=== PATIENT | male | born 1950 | race Caucasian/White ===

== ENCOUNTER 2017-01-09 14:09 | Emergency (ER) | payer OTHER ==
[2017-01-09 14:57] VITALS: TEMP 97.2
[2017-01-09] MEDS ORDERED: ASPIRIN 81 MG CHEW PO STA (16:24)
[2017-01-09] MEDS ORDERED: ORPHENADRINE 30 MG/ML 2 ML VIAL IVP STA (16:24)
--- NOTE | 2017-01-09 16:30 | ED ---
General Adult HPI - General Chief complaint: Neck Pain/Injury Stated complaint: Neck/Shoulder pain Time Seen by Provider: 01/09/17 16:18 Source: patient, RN notes reviewed Mode of arrival: ambulatory Limitations: no limitations - History of Present Illness Initial comments: 66-year-old male presents to the emergency 5 chief complaint of neck pain. Patient states that he just has a stiffness and soreness in his neck. Patient states he's had it for about a month or so. Patient states his will give him massages the pain will go away. Patient states that'll come back. Patient states that he has not had any injury to the neck. Patient states that She Feels Better for A Few Days and Then Once He Goes to Work Which Is Very Labor Intensive His Pain Will Return. Patient States He Was Concerned Because He Just Continues to Have the Pain so He Thought That He Should Be Evaluated. Patient States He Has Not Had Any Fever or Chills with This. Patient Denies Any Chest Pain or Shortness of Breath with This.Patient denies any recent fever , chills, shortness of breath, chest pain, back pain, abdominal pain, nausea vomiting, numbness or tingling, dysuria or hematuria, constipation or diarrhea, headaches or visual changes, or any other current symptoms. - Related Data Home Medications Medication Instructions Recorded Confirmed Aspirin EC [Ecotrin Low Dose] 81 mg PO DAILY 01/09/17 01/09/17 Loratadine [Claritin] 10 mg PO DAILY 01/09/17 01/09/17 Multivitamins, Thera [Multivitamin 1 tab PO DAILY 01/09/17 01/09/17 (formulary)] Previous Rx's Medication Instructions Recorded Ibuprofen [Motrin] 600 mg PO Q6HR PRN #20 tab 01/09/17 Orphenadrine [Norflex] 100 mg PO Q12H #10 tablet.er 01/09/17 Allergies Allergy/AdvReac Type Severity Reaction Status Date / Time No Known Allergies Allergy Verified 01/09/17 15:53 Review of Systems ROS Statement: Those systems with pertinent positive or pertinent negative responses have been documented in the HPI. ROS Other: All systems not noted in ROS Statement are negative. Past Medical History Past Medical History: Hyperlipidemia, Myocardial Infarction ([place]) History of Any Multi-Drug Resistant Organisms: None Reported Past Surgical History: No Surgical Hx Reported Past Psychological History: No Psychological Hx Reported Smoking Status: Former smoker Past Alcohol Use History: Occasional Past Drug Use History: None Reported General Exam - General Exam Comments Initial Comments: General: The patient is awake and alert, in no distress, and does not appear acutely ill. Eye: Pupils are equal. Ears, nose, mouth and throat: There are moist mucous membranes. Neck: The neck is supple, there is no tenderness. Cardiovascular: There is a regular rate and rhythm. No murmur, rub or gallop is appreciated. Respiratory: Lungs are clear to auscultation, respirations are non-labored, breath sounds are equal. No wheezes, stridor, rales, or rhonchi. Gastrointestinal: Soft, non-distended, non-tender abdomen without masses or organomegaly noted. There is no rebound or guarding present. No CVA tenderness. Bowel sounds are unremarkable. Back: There is no tenderness to palpation in the midline. There is no obvious deformity. No rashes noted. Musculoskeletal: Normal ROM, no tenderness, There is no pedal edema. There is no calf tenderness or swelling. Sensation intact. Pulses equal bilaterally 2+. Neurological: CN II-XII intact, There are no obvious motor or sensory deficits. Coordination appears grossly intact. Speech is normal. Skin: Skin is warm and dry and no rashes or lesions are noted. Psychiatric: Cooperative, appropriate mood & affect, normal judgment. Limitations: no limitations Course Vital Signs 01/09/17 01/09/17 14:53 17:19 Temperature 97.2 F L Pulse Rate 61 52 L Respiratory 16 18 Rate Blood Pressure 142/74 141/89 O2 Sat by Pulse 99 99 Oximetry EKG Findings - EKG Comments: EKG Findings:: Sinus bradycardia 54 bpm, normal axis, no atopy, no S-T depressions or elevations, Medical Decision Making - Medical Decision Making 66-year-old male presents to the emergency department with a chief complaint of neck stiffness. This time patient's lab work and x-rays reviewed. Troponin is negative he has had this same exact pain for over a month. Patient is feeling 100% better with the muscle relaxer. At this time x-ray does show much degeneration other type changes which she was informed of this. At this time we discussed we will start him on the muscle relaxers and Motrin 600 for pain control. We did discuss close follow-up with or so and return parameters. Patient stated that he understood and all questions have been answered. He will be discharged. - Lab Data Result diagrams: 01/09/17 16:13 01/09/17 16:13 Lab Results 01/09/17 01/09/17 01/09/17 Range/Units 16:13 16:13 16:13 WBC 6.9 (3.8-10.6) k/uL RBC 4.74 (4.30-5.90) m/uL Hgb 15.0 (13.0-17.5) gm/dL Hct 44.0 (39.0-53.0) % MCV 92.7 (80.0-100.0) fL MCH 31.7 (25.0-35.0) pg MCHC 34.1 (31.0-37.0) g/dL RDW 13.1 (11.5-15.5) % Plt Count 199 (150-450) k/uL Neutrophils % 64 % Lymphocytes % 26 % Monocytes % 5 % Eosinophils % 1 % Basophils % 0 % Neutrophils # 4.4 (1.3-7.7) k/uL Lymphocytes # 1.8 (1.0-4.8) k/uL Monocytes # 0.3 (0-1.0) k/uL Eosinophils # 0.1 (0-0.7) k/uL Basophils # 0.0 (0-0.2) k/uL PT (9.0-12.0) sec INR (<1.1) APTT (22.0-30.0) sec Sodium 141 (137-145) mmol/L Potassium 4.4 (3.5-5.1) mmol/L Chloride 107 (98-107) mmol/L Carbon Dioxide 25 (22-30) mmol/L Anion Gap 9 mmol/L BUN 24 H (9-20) mg/dL Creatinine 1.02 (0.66-1.25) mg/dL Est GFR (MDRD) Af Amer >60 (>60 ml/min/1.73 sqM) Est GFR (MDRD) Non-Af >60 (>60 ml/min/1.73 sqM) Glucose 82 (74-99) mg/dL Calcium 9.4 (8.4-10.2) mg/dL Magnesium 2.1 (1.6-2.3) mg/dL Total Bilirubin 0.7 (0.2-1.3) mg/dL AST 35 (17-59) U/L ALT 38 (21-72) U/L Alkaline Phosphatase 83 (38-126) U/L Total Creatine Kinase 293 H (55-170) U/L CK-MB (CK-2) 2.8 H* (0.0-2.4) ng/mL CK-MB (CK-2) Rel Index 1.0 Troponin I <0.012 (0.000-0.034) ng/mL Total Protein 7.1 (6.3-8.2) g/dL Albumin 4.2 (3.5-5.0) g/dL 01/09/17 Range/Units 16:13 WBC (3.8-10.6) k/uL RBC (4.30-5.90) m/uL Hgb (13.0-17.5) gm/dL Hct (39.0-53.0) % MCV (80.0-100.0) fL MCH (25.0-35.0) pg MCHC (31.0-37.0) g/dL RDW (11.5-15.5) % Plt Count (150-450) k/uL Neutrophils % % Lymphocytes % % Monocytes % % Eosinophils % % Basophils % % Neutrophils # (1.3-7.7) k/uL Lymphocytes # (1.0-4.8) k/uL Monocytes # (0-1.0) k/uL Eosinophils # (0-0.7) k/uL Basophils # (0-0.2) k/uL PT 11.2 (9.0-12.0) sec INR 1.1 (<1.1) APTT 25.1 (22.0-30.0) sec Sodium (137-145) mmol/L Potassium (3.5-5.1) mmol/L Chloride (98-107) mmol/L Carbon Dioxide (22-30) mmol/L Anion Gap mmol/L BUN (9-20) mg/dL Creatinine (0.66-1.25) mg/dL Est GFR (MDRD) Af Amer (>60 ml/min/1.73 sqM) Est GFR (MDRD) Non-Af (>60 ml/min/1.73 sqM) Glucose (74-99) mg/dL Calcium (8.4-10.2) mg/dL Magnesium (1.6-2.3) mg/dL Total Bilirubin (0.2-1.3) mg/dL AST (17-59) U/L ALT (21-72) U/L Alkaline Phosphatase (38-126) U/L Total Creatine Kinase (55-170) U/L CK-MB (CK-2) (0.0-2.4) ng/mL CK-MB (CK-2) Rel Index Troponin I (0.000-0.034) ng/mL Total Protein (6.3-8.2) g/dL Albumin (3.5-5.0) g/dL - Radiology Data Radiology results: report reviewed, image reviewed Disposition Clinical Impression: Cervical spine degeneration Disposition: HOME SELF-CARE Condition: Stable Instructions: Degenerative Disc Disease (ED) Additional Instructions: Please use medication as discussed. Please follow up with family doctor if symptoms have not improved over the next two days. Please return to the emergency room if your symptoms increase or worsen or for any other concerns. Prescriptions: Ibuprofen [Motrin] 600 mg PO Q6HR PRN #20 tab PRN Reason: Pain Orphenadrine [Norflex] 100 mg PO Q12H #10 tablet.er Referrals: Ninoska Clarke MD [Primary Care Provider] - 1-2 days Dora Horner DO [Doctor of Osteopathic Medicine] - 1-2 days Time of Disposition: 18:09
[2017-01-09 16:46] LABS: Basophils % (A) 0 %; CHCM 34.6; Eosinophils # (A) 0.1 k/uL (0-0.7); Eosinophils % (A) 1 %; HDW 2.63; Luc % (Auto) 3; Lymphocytes # (A) 1.8 k/uL (1.0-4.8); Lymphocytes % (A) 26 %; MCH 31.7 pg (25.0-35.0); MCHC 34.1 g/dL (31.0-37.0); MCV 92.7 fL (80.0-100.0); Mean Platelet Volume 6.7; Monocytes # (A) 0.3 k/uL (0-1.0); Monocytes % (A) 5 %; Neutrophils # (A) 4.4 k/uL (1.3-7.7); Neutrophils % (A) 64 %; RBC 4.74 m/uL (4.30-5.90); RDW 13.1 % (11.5-15.5); WBC 6.9 k/uL (3.8-10.6); WBC (Perox) 6.72
[2017-01-09 16:47] LABS: INR 1.1 (<1.1); Partial Thromboplastin Time 25.1 sec (22.0-30.0); Prothrombin Time 11.2 sec (9.0-12.0)
[2017-01-09 16:52] LABS: ALT 38 U/L (21-72); AST 35 U/L (17-59); Alkaline Phosphatase 83 U/L (38-126); Anion Gap 9 mmol/L; Blood Urea Nitrogen 24 mg/dL (9-20); Calcium 9.4 mg/dL (8.4-10.2); Carbon Dioxide 25 mmol/L (22-30); Chloride 107 mmol/L (98-107); Glucose 82 mg/dL (74-99); Magnesium 2.1 mg/dL (1.6-2.3); Non-African American GFR(MDRD) >60 (>60 ml/min/1.73 sqM); Potassium 4.4 mmol/L (3.5-5.1); Sodium 141 mmol/L (137-145); Total Bilirubin 0.7 mg/dL (0.2-1.3); Total Protein 7.1 g/dL (6.3-8.2)
--- NOTE | 2017-01-09 16:55 | XR ---
EXAMINATION TYPE: XR cervical spine comp DATE OF EXAM: 01/09/2017 4:49 PM COMPARISON: NONE HISTORY: 66-year-old male chronic posterior neck pain TECHNIQUE: 5 views FINDINGS: No predental space widening or prevertebral soft tissue swelling. Facet arthropathy mid to lower cervical spine with moderate disc session for degenerative change regino cially from C5 to C7 levels. There is disc and interspace narrowing with endplate sclerosis and spond ylosis. There is trace grade 1 retrolisthesis at C4-C5 and C5-C6. Scattered facet and uncovertebral j oint degenerative change. On the left, there is mild bony spondylotic neural foraminal narrowing at C3-C4 and C4-C5 and more mi ld to moderate at C5-C6 and C6-C7. Obliquity limits assessment of the left C2-C3 neuroforamen. On the right, there is moderate neural foraminal narrowing at C3-C4 and mild at C5-C6 and C6-C7. Normal odontoid view. IMPRESSION: 1. Moderate disc/endplate degenerative change mid to lower cervical spine with multilevel facet and u ncovertebral joint arthropathy. 2. Degenerative grade 1 retrolisthesis at C4-C5 and C5-C6. 3. Variable [id number] bony neural foraminal narrowing as outlined above, greatest on the right at C3-C4. Obliquity limits assessment of the left C2-C3 neuroforamen.
[2017-01-09 16:56] LABS: Creatine Kinase 293 U/L (55-170)
--- NOTE | 2017-01-09 16:56 | XR ---
EXAMINATION TYPE: XR chest 2V DATE OF EXAM: 01/09/2017 4:49 PM COMPARISON: None HISTORY: 66-year-old male with chest pain TECHNIQUE: PA and lateral views FINDINGS: The cardiomediastinal silhouette, aorta, and pulmonary vasculature are within normal limits. Lungs an d pleural spaces are clear. IMPRESSION: No acute cardiopulmonary process.
[2017-01-09 17:10] LABS: Troponin I <0.012 ng/mL (0.000-0.034)
[2017-01-09 17:19] LABS: Creatine Kinase MB 2.8 ng/mL (0.0-2.4)
[2017-01-09 17:20] VITALS: RESP 18
[2017-01-09 18:21] VITALS: BP 138/86; PULSE 51
== END 2017-01-09 18:20 | disposition home or self-care (01) ==
LOC: EC 14:09
DX: M50.30 Other cervical disc degeneration, unspecified cervical region (principal); I25.2 Old myocardial infarction; Z87.891 Personal history of nicotine dependence; Z79.82 Long term (current) use of aspirin; Z79.899 Other long term (current) drug therapy
CPT/HCPCS: 36415; 80053; 82550; 82553; 83735; 84484; 85025; 85610; 85730; 71020; 72050; 99284; 96374; J2360; 93005

== ENCOUNTER 2017-07-06 02:40 | Emergency (ER) | payer OTHER ==
[2017-07-06 02:49] VITALS: RESP 18
[2017-07-06] MEDS ORDERED: DIAZEPAM 5 MG/ML 2 ML SYRINGE IM STA (03:07)
[2017-07-06] MEDS ORDERED: HYDROmorphone 1 MG/ML 1 ML SYRINGE IM STA (03:07)
--- NOTE | 2017-07-06 03:12 | ED ---
Neck Injury/Pain HPI - General Chief Complaint: Neck Pain/Injury Stated Complaint: Neck Pain Time Seen by Provider: 07/06/17 02:52 Source: patient, RN notes reviewed Mode of arrival: ambulatory Limitations: no limitations - History of Present Illness Initial Comments: 66-year-old male presents emergency Department chief complaint of neck pain. Patient was seen here earlier and was given Norflex for his neck spasm. Patient states she's had this in the past for Dr. Stokes for it. Patient had an MRI which showed some disc issues. Patient states that he had some intense labor recently which aggravated his pain. Patient has pain with any movement flexion extension rotation. Patient states it's worse when he goes away from the pain on the right side. He denies any upper extremity weakness paresthesias or discoloration. Patient denies chest pain or shortness of breath. Patient states he also had symptoms of this back in December which are exactly the same. Patient states did scheduled follow Dr. Stokes. Patient states that he returned because the Norflex did not help his pain and he cannot sleep. - Related Data Home Medications Medication Instructions Recorded Confirmed Loratadine [Claritin] 10 mg PO DAILY 01/09/17 07/05/17 Multivitamins, Thera [Multivitamin 1 tab PO DAILY 01/09/17 07/05/17 (formulary)] Previous Rx's Medication Instructions Recorded Diazepam [Valium] 5 mg PO BID PRN #14 tab 07/06/17 Hydrocodone/Acetaminophen [[place] 1 tab PO Q6HR PRN #20 tab 07/06/17 5-325] methylPREDNISolone [Medrol Dose 4 mg PO DIRECTED #1 pack 07/06/17 Pack] Allergies Allergy/AdvReac Type Severity Reaction Status Date / Time No Known Allergies Allergy Verified 07/06/17 02:49 Review of Systems ROS Statement: Those systems with pertinent positive or pertinent negative responses have been documented in the HPI. ROS Other: All systems not noted in ROS Statement are negative. Past Medical History Past Medical History: Hyperlipidemia, Myocardial Infarction ([place]) History of Any Multi-Drug Resistant Organisms: None Reported Past Surgical History: No Surgical Hx Reported Additional Past Surgical History / Comment(s): HX shoulder surgery to right shoulder and hernia repair. Past Psychological History: No Psychological Hx Reported Smoking Status: Former smoker Past Alcohol Use History: Occasional Past Drug Use History: None Reported General Exam Limitations: no limitations General appearance: alert, in no apparent distress Head exam: Present: atraumatic, normocephalic, normal inspection Eye exam: Present: normal appearance, PERRL, EOMI. Absent: scleral icterus, conjunctival injection, periorbital swelling ENT exam: Present: normal exam, normal oropharynx, mucous membranes moist, TM's normal bilaterally, normal external ear exam Neck exam: Present: normal inspection, tenderness (Moderate tenderness over the right trapezius more so over the attachment point at the occipital region). Absent: meningismus, full ROM (Decreased range of motion secondary to pain), lymphadenopathy Respiratory exam: Present: normal lung sounds bilaterally. Absent: respiratory distress, wheezes, rales, rhonchi, stridor Cardiovascular Exam: Present: regular rate, normal rhythm, normal heart sounds. Absent: systolic murmur, diastolic murmur, rubs, gallop, clicks Extremities exam: Present: normal inspection, full ROM, normal capillary refill. Absent: tenderness, pedal edema, joint swelling, calf tenderness Course Vital Signs 07/06/17 02:44 Temperature 98.0 F Pulse Rate 63 Respiratory 18 Rate Blood Pressure 164/82 O2 Sat by Pulse 98 Oximetry Medical Decision Making - Medical Decision Making 66-year-old male present emergency department for neck pain. Patient has trapezius muscle spasm. Patient was given pain medication and Valium at this time. He'll be discharged with pain meds. Patient will follow-up with Dr. Stokes return parameters were discussed. Disposition Clinical Impression: Trapezius muscle spasm Disposition: HOME SELF-CARE Condition: Stable Instructions: Muscle Spasm (ED) Additional Instructions: Please return to the Emergency Department if symptoms worsen or any other concerns. Prescriptions: Diazepam [Valium] 5 mg PO BID PRN #14 tab PRN Reason: muscle spasms Hydrocodone/Acetaminophen [[place] 5-325] 1 tab PO Q6HR PRN #20 tab PRN Reason: Pain methylPREDNISolone [Medrol Dose Pack] 4 mg PO DIRECTED #1 pack Referrals: Ninoska Clarke MD [Primary Care Provider] - 1-2 days Time of Disposition: 03:11
[2017-07-06] MEDS ORDERED: DIAZEPAM 5 MG/ML 2 ML SYRINGE IVP STA (03:17)
[2017-07-06] MEDS ORDERED: HYDROmorphone 1 MG/ML 1 ML SYRINGE IVP STA (03:18)
[2017-07-06] MEDS ORDERED: ONDANSETRON 4 MG/2 ML VIAL IVP STA (03:18)
[2017-07-06] MEDS ORDERED: DIAZEPAM 5 MG TAB PO STA (03:24)
[2017-07-06 03:56] VITALS: BP 153/88; PULSE 68
[2017-07-06 04:05] VITALS: TEMP 98.2
== END 2017-07-06 04:05 | disposition home or self-care (01) ==
LOC: EC 02:40
DX: M62.838 Other muscle spasm (principal); Z87.891 Personal history of nicotine dependence; Z79.899 Other long term (current) drug therapy; Z53.8 Procedure and treatment not carried out for other reasons
CPT/HCPCS: 99283; 96374; 96375; J2405; J1170

== ENCOUNTER 2018-11-23 19:18 | Emergency (ER) | payer OTHER ==
[2018-11-23 19:35] VITALS: BP 156/89; PULSE 63; RESP 16; TEMP 98
[2018-11-23] MEDS ORDERED: MORPHINE SULFATE 4 MG/ML SYRINGE IM STA (19:55)
--- NOTE | 2018-11-23 20:27 | ED ---
Fall HPI - General Chief Complaint: Fall Stated Complaint: Fall, Rib pain Time Seen by Provider: 11/23/18 19:40 Source: patient, RN notes reviewed, old records reviewed Mode of arrival: ambulatory - History of Present Illness Initial Comments: 68-year-old male presents emergency department today with complaints of slip and fall complaining of right rib pain. Patient states that he slipped on a small patch of ice while he was holding a leaf blower. He reports he slipped and fell with a leaf blower and landed with a leaf blower hitting his right ribs. He reports pain with taking a deep breath. He does take 1 tramadol daily for chronic neck pain. Patient states that he has no abdominal pain. He denies any head or neck pain related to the injury. He had no loss conscious. - Related Data Home Medications Medication Instructions Recorded Confirmed Loratadine [Claritin] 10 mg PO DAILY 01/09/17 07/05/17 Multivitamins, Thera [Multivitamin 1 tab PO DAILY 01/09/17 07/05/17 (formulary)] Previous Rx's Medication Instructions Recorded Diazepam [Valium] 5 mg PO BID PRN #14 tab 07/06/17 Hydrocodone/Acetaminophen [[place] 1 tab PO Q6HR PRN #20 tab 07/06/17 5-325] methylPREDNISolone [Medrol Dose 4 mg PO DIRECTED #1 pack 07/06/17 Pack] Acetaminophen with Codeine 1 tab PO Q6H PRN 3 Days #12 tab 11/23/18 [Tylenol w/codeine #3] Allergies Allergy/AdvReac Type Severity Reaction Status Date / Time No Known Allergies Allergy Verified 11/23/18 19:35 Review of Systems ROS Statement: Those systems with pertinent positive or pertinent negative responses have been documented in the HPI. ROS Other: All systems not noted in ROS Statement are negative. Past Medical History Past Medical History: Hyperlipidemia, Myocardial Infarction ([place]) History of Any Multi-Drug Resistant Organisms: None Reported Past Surgical History: No Surgical Hx Reported Additional Past Surgical History / Comment(s): HX shoulder surgery to right shoulder and hernia repair. Past Psychological History: No Psychological Hx Reported Smoking Status: Former smoker Past Alcohol Use History: Occasional Past Drug Use History: None Reported General Exam - General Exam Comments Initial Comments: 68-year-old male. Patient is pleasant. Patient appears in no significant distress. Limitations: no limitations General appearance: alert, in no apparent distress Head exam: Present: atraumatic, normocephalic, normal inspection Eye exam: Present: normal appearance, PERRL, EOMI. Absent: scleral icterus, conjunctival injection, periorbital swelling ENT exam: Present: normal exam, mucous membranes moist Neck exam: Present: normal inspection. Absent: tenderness, meningismus, lymphadenopathy Respiratory exam: Present: normal lung sounds bilaterally, other (Patient has tenderness of the right ribs. No evidence of bruising or erythema. No signs of flail chest.). Absent: respiratory distress, wheezes, rales, rhonchi, stridor Cardiovascular Exam: Present: regular rate, normal rhythm, normal heart sounds. Absent: systolic murmur, diastolic murmur, rubs, gallop, clicks GI/Abdominal exam: Present: soft, normal bowel sounds. Absent: distended, tenderness, guarding, rebound, rigid Course Vital Signs 11/23/18 19:30 Temperature 98.0 F Pulse Rate 63 Respiratory 16 Rate Blood Pressure 156/89 O2 Sat by Pulse 98 Oximetry Medical Decision Making - Medical Decision Making Patient is a 69-year-old male presents emergency department today with complaints of pain over the right ribs. Symptoms started after he fell while be flowing. Patient reports he fell on top of leave blower on his right ribs. This time he is some tenderness over the lower ribs. No bruising noted. Lungs signs are normal bilaterally. Patient's chest x-ray is negative for any acute process. There is no sign of fracture on x-ray. At this time Patient will be given since from tree. Discussed close follow-up with primary care physician. Given a short prescription for Tylenol codeine for acute pain. All questions were answered and return parameters were discussed. - Radiology Data Radiology results: report reviewed Normal ribs and chest x-ray noted. Disposition Clinical Impression: Contusion of rib on right side Disposition: HOME SELF-CARE Condition: Good Instructions (If sedation given, give patient instructions): Rib Contusion (ED) Additional Instructions: Patient advised to have close follow-up with primary care physician. Use incentive spirometer to encourage frequent deep breaths. Patient should take the medication as prescribed and alternate with Motrin and Tylenol. Return to the emergency department if any alarming signs or symptoms occur. Prescriptions: Acetaminophen with Codeine [Tylenol w/codeine #3] 1 tab PO Q6H PRN 3 Days #12 tab PRN Reason: Pain Is patient prescribed a controlled substance at d/c from ED?: Yes When asked, does pt state using other controlled substances?: No If prescribed controlled substance>3 days was MAPS reviewed?: Prescribed <3 Days If opioid is for acute pain is fill amount 7 days or less?: Yes If Rx opioid, was Start Talking consent form obtained?: Yes Referrals: Ninoska Clarke MD [Primary Care Provider] - 1-2 days Time of Disposition: 21:07
--- NOTE | 2018-11-23 21:00 | XR ---
PROCEDURE: XR ribs RT w pa chest xray - 5V DATE AND TIME: 11/23/2018 8:29 PM CLINICAL INDICATION: PHH; Pain TECHNIQUE: 5V right rib series COMPARISON: 01/09/2017 FINDINGS: There is no fracture or malalignment. The soft tissues are unremarkable. No pneumothorax or pleural effusion. IMPRESSION: NO ACUTE PROCESS.
== END 2018-11-23 21:28 | disposition home or self-care (01) ==
LOC: EC 19:18
DX: S20.211A Contusion of right front wall of thorax, initial encounter (principal); I25.2 Old myocardial infarction; Z79.899 Other long term (current) drug therapy; Z87.891 Personal history of nicotine dependence; W00.0XXA Fall on same level due to ice and snow, initial encounter
CPT/HCPCS: 71101; 99284; 96372; J2270

== ENCOUNTER 2020-11-25 16:15 | Emergency (ER) | payer OTHER ==
[2020-11-25 16:47] VITALS: BP 160/93; PULSE 68; RESP 18; TEMP 97.8
--- NOTE | 2020-11-25 17:10 | ED ---
General Adult HPI - General Chief complaint: Skin/Abscess/Foreign Body Stated complaint: Hemorrhoids Time Seen by Provider: 11/25/20 16:48 Source: patient, family, RN notes reviewed Mode of arrival: ambulatory Limitations: no limitations - History of Present Illness Initial comments: Patient is a 70-year-old male that presents to emergency department complaining of rectal pain on bowel movement and bearing down. He noted that he does have a history of hemorrhoids and was just making sure there wasn't a severe case of hemorrhoids. He denied any blood in the stool. He noted that he just wanted make sure because the pain was more significant than usual. He denied any history of anal fissures. He noted after bowel movements are times of strenuous effort/bearing down he does have moderate pain that lasts several minutes and take some time to go away. He denied any chest pain first breath headache nausea vomiting diarrhea constipation fever fatigue chills. - Related Data Home Medications Medication Instructions Recorded Confirmed Loratadine [Claritin] 10 mg PO DAILY 01/09/17 07/05/17 Multivitamins, Thera [Multivitamin 1 tab PO DAILY 01/09/17 07/05/17 (formulary)] Previous Rx's Medication Instructions Recorded Hydrocodone/Acetaminophen [Veguita 1 tab PO Q6HR PRN #20 tab 07/06/17 5-325] diazePAM [Valium] 5 mg PO BID PRN #14 tab 07/06/17 methylPREDNISolone [Medrol Dose 4 mg PO DIRECTED #1 pack 07/06/17 Pack] Acetaminophen with Codeine 1 tab PO Q6H PRN 3 Days #12 tab 11/23/18 [Tylenol w/codeine #3] Allergies Allergy/AdvReac Type Severity Reaction Status Date / Time No Known Allergies Allergy Verified 11/25/20 16:47 Review of Systems ROS Statement: Those systems with pertinent positive or pertinent negative responses have been documented in the HPI. ROS Other: All systems not noted in ROS Statement are negative. Past Medical History Past Medical History: Hyperlipidemia, Hypertension, Myocardial Infarction ([place]) History of Any Multi-Drug Resistant Organisms: None Reported Past Surgical History: No Surgical Hx Reported Additional Past Surgical History / Comment(s): HX shoulder surgery to right shoulder and hernia repair. Past Psychological History: No Psychological Hx Reported Smoking Status: Former smoker Past Alcohol Use History: Occasional Past Drug Use History: None Reported General Exam Limitations: no limitations General appearance: alert, in no apparent distress Head exam: Present: atraumatic, normocephalic, normal inspection Eye exam: Present: normal appearance, PERRL, EOMI. Absent: scleral icterus, conjunctival injection, periorbital swelling ENT exam: Present: normal exam, mucous membranes moist Neck exam: Present: normal inspection. Absent: tenderness, meningismus, lymphadenopathy Respiratory exam: Present: normal lung sounds bilaterally. Absent: respiratory distress, wheezes, rales, rhonchi, stridor Cardiovascular Exam: Present: regular rate, normal rhythm, normal heart sounds. Absent: systolic murmur, diastolic murmur, rubs, gallop, clicks GI/Abdominal exam: Present: soft, normal bowel sounds. Absent: distended, tenderness, guarding, rebound, rigid Rectal exam: Present: other (Anal fissure on the left side of the rectum.) Extremities exam: Present: normal inspection, full ROM, normal capillary refill. Absent: tenderness, pedal edema, joint swelling, calf tenderness Back exam: Present: normal inspection Neurological exam: Present: alert, oriented X3, CN II-XII intact Psychiatric exam: Present: normal affect, normal mood Skin exam: Present: warm, dry, intact, normal color. Absent: rash Course Vital Signs 11/25/20 16:45 Temperature 97.8 F Pulse Rate 68 Respiratory 18 Rate Blood Pressure 160/93 O2 Sat by Pulse 97 Oximetry Medical Decision Making - Medical Decision Making 70-year-old male complaining of rectal pain on bowel movements and bearing down. Upon inspection a small anal fissure on the left side of the rectum was noted. Patient was educated on anal fissures, management. Case discussed with Dr. Booker, patient discharged home with symptomatic management. Disposition Clinical Impression: Anal fissure Disposition: HOME SELF-CARE Condition: Stable Instructions (If sedation given, give patient instructions): Anal Fissure (ED) Additional Instructions: Please return to the Emergency Department if symptoms worsen or any other concerns. Can take sitz bath's tell with symptomatic management, also use stool softeners to reduce the burning on the rectum. Anal fissures heal on their own, just takes time. Is patient prescribed a controlled substance at d/c from ED?: No Referrals: Ninoska Clarke MD [Primary Care Provider] - 1-2 days Time of Disposition: 17:10
== END 2020-11-25 17:25 | disposition home or self-care (01) ==
LOC: EC 16:15
DX: K60.2 Anal fissure, unspecified (principal); I25.2 Old myocardial infarction; Z87.891 Personal history of nicotine dependence
CPT/HCPCS: 99282